=== PATIENT | female | born 1990 | race Hispanic/Latino ===

== ENCOUNTER 2018-06-14 19:31 | Inpatient (IN) | payer SELFPAY ==
[2018-06-14] MEDS ORDERED: Ondansetron ODT 4 MG TAB SL PRN (22:34)
[2018-06-14] MEDS ORDERED: Ondansetron HCl/PF 4 MG/2 ML Vial IVP PRN (22:34)
[2018-06-14 22:38] VITALS: BMI 34.4
[2018-06-15] MEDS ORDERED: metroNIDAZOLE 500 MG in Premix Bag 1 BAG IVPB SCH (02:00)
--- NOTE | 2018-06-15 07:44 | HP ---
CHIEF COMPLAINT: Lower abdominal pain. HISTORY OF PRESENT ILLNESS: This is a 28-year-old female who about 3:00 p.m. yesterday started havin g lower abdominal pain, nausea, vomiting, fever to 100.6. She came to the emergency room where a CAT scan showed that she had appendicitis. PAST MEDICAL HISTORY: Otherwise, healthy. PAST SURGICAL HISTORY: None. MEDICATIONS: None. ALLERGIES: She is allergic to PENICILLIN. SOCIAL HISTORY: She is single. 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 No tobacco or alcohol. FAMILY HISTORY: Hypertension. PHYSICAL EXAMINATION: VITAL SIGNS: Temperature 98.1, pulse 80, blood pressure 104/59. GENERAL: She is awake and alert, does not appear to have any distress. She is an obese female. HEENT: Unremarkable. LUNGS: Clear. HEART: Regular rate and rhythm. ABDOMEN: Soft, obese. She is tender in the right lower quadrant. EXTREMITIES: Unremarkable. LABORATORY DATA AND X-RAY FINDINGS: Her white count is 20.8, H&H is 15 and 47, platelet count 403. Electrolytes are fine. HCG negative. Urinalysis showed small amount of esterase and 11-20 white arslan ls. She had a CT scan showing acute appendicitis. ASSESSMENT: Acute appendicitis. PLAN: Laparoscopic appendectomy. CONSENT: I have discussed the planned procedure as well as risk of bleeding, infection, injury to bl adder, bowel, need to open. She understands and gives informed consent.
[2018-06-15] MEDS ORDERED: Fentanyl 100 MCG/2 ML VIAL ONE ×2 (16:03→18:45)
[2018-06-15] MEDS ORDERED: Clindamycin/D5W 900 mg/50 ml Premix Bag ONE (16:50)
[2018-06-15] MEDS ORDERED: Bupivacaine/Epinephrine 0.25% 30 ML VIAL ONE (16:53)
[2018-06-15] MEDS ORDERED: Lidocaine 1% PF 5 ML VIAL ONE (17:28)
[2018-06-15] MEDS ORDERED: Glycopyrrolate 0.2 MG/ML 5 ML SYRINGE ONE (17:28)
[2018-06-15] MEDS ORDERED: Dexamethasone 20 MG/5 ML VIAL ONE (17:28)
[2018-06-15] MEDS ORDERED: Ondansetron HCl/PF 4 MG/2 ML Vial ONE (17:28)
[2018-06-15] MEDS ORDERED: PROPOFOL 200 MG/20 ML VIAL ONE (17:28)
[2018-06-15] MEDS ORDERED: Ketorolac Tromethamine 30 MG/ML VIAL ONE (17:28)
[2018-06-15] MEDS ORDERED: Succinylcholine Chloride 20 MG/ML 10 ml SYRINGE FS ONE (17:28)
[2018-06-15] MEDS ORDERED: SUGAMMADEX SODIUM 200 MG/2 ML VIAL ONE (17:59)
[2018-06-15] MEDS ORDERED: Dextrose 5% in Water 1,000 ML IV PRN (18:03)
[2018-06-15] MEDS ORDERED: Dextrose 50% Abboject 50 ML SYRINGE SLOW IVP PRN (18:03)
[2018-06-15] MEDS ORDERED: Promethazine HCl 25 MG/ML VIAL IM PRN ×2 (18:03→18:10)
[2018-06-15] MEDS ORDERED: Ondansetron HCl/PF 4 MG/2 ML Vial IVP PRN ×2 (18:03→18:10)
[2018-06-15] MEDS ORDERED: hydrALAZINE 20 MG/ML VIAL SLOW IVP PRN (18:03)
[2018-06-15] MEDS ORDERED: HYDROcodone/Acetaminophen 10/325 mg Tablet PO PRN ×2 (18:03)
[2018-06-15] MEDS ORDERED: Promethazine HCl 25 MG/ML VIAL SLOW IVP PRN (18:10)
[2018-06-15] MEDS ORDERED: D5 1/2 NS w/20 mEq KCL 1,000 ML IV SCH (18:15)
[2018-06-15] MEDS ORDERED: Famotidine 20 MG TAB PO SCH (21:00)
[2018-06-15] MEDS ORDERED: Famotidine/PF 20 mg/2ml Vial SLOW IVP SCH (21:00)
--- NOTE | 2018-06-15 21:01 | OP ---
PREOPERATIVE DIAGNOSIS: Acute appendicitis. SURGEON: Cecil Unger M.D. PROCEDURE PERFORMED: Laparoscopic appendectomy. INDICATIONS: This is a 28-year-old female who presented with a 24-hour history of right lower quadra nt pain, nausea, vomiting. CT showed acute appendicitis. FINDINGS: Acute suppurative nonperforated appendicitis. PROCEDURE IN DETAIL: After informed consent was obtained, the patient was taken to the operating rima m and given general endotracheal anesthesia. She was placed in the supine position. Abdomen was pre pped and draped in usual fashion. Local anesthesia infiltrated subcutaneously and deep. A subumbili kenyetta incision was performed. The subcu divided sharply. The fascia grasped and two stay sutures of 0 Vicryl placed on either side of midline. Midline incised. Digital palpation revealed no local adhe sions. A blunt 10 to 12 mm trocar inserted. Pneumoperitoneum was created to a pressure of 15 mmHg. Zero-degree laparoscope inserted under direct vision. Two 5-mm ports were placed, one suprapubic an d one right lateral abdomen. The appendix was grasped and advanced superiorly. The mesoappendix div ided utilizing the LigaSure. The base of the appendix was divided utilizing the linear 45 mm white l oad stapler. The appendix was placed in an Endosac and removed from the abdomen through the umbilica l incision. Hemostasis was assured. The abdomen irrigated and irrigation fluid removed. Trocars an d retractors removed. The fascia closed with interrupted 2-0 Vicryl suture. The skin closed with in terrupted 4-0 Rapide. Dermabond applied. The patient tolerated the procedure well and was transferr ed to recovery in good condition. Sponge and needle count verified correct x2.
[2018-06-15 23:47] VITALS: BP 107/55; TEMP 98.4
[2018-06-15] MEDS ORDERED: Ketorolac Tromethamine 30 MG/ML VIAL IVP SCH (23:59)
[2018-06-16] MEDS ORDERED: Enoxaparin Sodium 40 MG/0.4 ML SYRINGE SC SCH (09:00)
== END 2018-06-15 23:58 | disposition home or self-care (01) | DRG 343 ==
LOC: ERS 19:31 → 3SE 22:20 → OBSVTOIN 22:20
PROVIDERS: ADMIT Surgery; ATTEND Surgery
PROC: 0DTJ4ZZ Resection of Appendix, Percutaneous Endoscopic Approach (ICD-10-PCS; principal; 2018-06-14)
DX: K35.80 Unspecified acute appendicitis (principal)
CPT/HCPCS: 99285; A4216; J1100; J1885; J1956; J2001; J2405; J2704; J3010; J3490